=== PATIENT | female | born 1985 | race Caucasian/White ===

== ENCOUNTER 2021-11-13 16:19 | Emergency (ER) | payer BC ==
[~2021-11-13] VITALS: Ht 162.6 cm; Wt 59.0 kg
[2021-11-13 16:27] VITALS: BP 116/73
--- NOTE | 2021-11-13 16:48 | NUR ---
SUTURE REMOVED BY .
[2021-11-13] MEDS ORDERED: CEPH500C2 PO (16:50)
--- NOTE | 2021-11-13 17:09 | NUR ---
Patient discharged to home in stable condition. Written and verbal after care instructions given. Patient verbalizes understanding of instruction.
== END 2021-11-13 17:10 | disposition home or self-care (01) ==
LOC: ER 16:21
DX: T81.49XA Infection following a procedure, other surgical site, initial encounter (principal)